=== PATIENT | female | born 1985 | race Caucasian/White ===

== ENCOUNTER 2016-07-14 14:02 | Emergency (ER) | payer SELFPAY ==
--- NOTE | 2016-07-14 14:30 | ER Document Report ---
ED Medical Screen (RME) - General Chief Complaint: Vomiting Stated Complaint: VOMITTING, DIZZY Time seen by provider: 14:28 Mode of Arrival: Ambulatory Information source: Patient Notes: 30 yo female presents to ed for vomiting dizziness and fatigue for a week - HPI Onset: Last week Onset/Duration: Gradual Quality of pain: Achy Severity: Moderate Pain Level: 4 Associated Symptoms: Dizzy/lightheaded, Headache, Vomiting, Other - fatiqued. denies: Fever Exacerbated by: Denies Relieved by: Denies Similar symptoms previously: No Recently seen / treated by doctor: No - Related Data Smoking: Cigarettes, Less than 1 pack/day Frequency of alcohol use: None Drug Abuse: None Allergies/Adverse Reactions: No Known Allergies Allergy (Unverified 07/14/16 14:27) Physical Exam - Vital signs Vitals: Temp Pulse Resp BP Pulse Ox 98.1 F 75 14 146/95 H 99 07/14/16 14:19 07/14/16 14:19 07/14/16 14:19 07/14/16 14:19 07/14/16 14:19 Course - Vital Signs Vital signs: Temp Pulse Resp BP Pulse Ox 98.1 F 75 14 146/95 H 99 07/14/16 14:19 07/14/16 14:19 07/14/16 14:19 07/14/16 14:19 07/14/16 14:19
[2016-07-14] MEDS ORDERED: ONDANSETRON 4 MG TAB.RAPDIS PO ONE (14:31)
[2016-07-14 14:59] LABS: ABSOLUTE LYMPHOCYTES (AUTO) 1.6 10^3/uL (0.5-4.7); ABSOLUTE MONOCYTES (AUTO) 0.5 10^3/uL (0.1-1.4); BASOPHILS % (AUTO) 0.4 % (0-2); EOSINOPHILS % (AUTO) 0.4 % (0-6); HEMATOCRIT 42.4 % (36.0-47.0); HEMOGLOBIN 14.7 g/dL (12.0-15.5); HGB HCT DIFFERENCE 1.7; LYMPHOCYTES % (AUTO) 19.9 % (13-45); MEAN CORPUSCULAR HGB CONC 34.5 g/dL (32.0-36.0); MEAN CORPUSCULAR VOLUME 93 fl (80-97); RED BLOOD COUNT 4.57 10^6/uL (3.72-5.28); RED CELL DISTRIBUTION WIDTH 12.8 % (11.5-14.0); SEGMENTED NEUTROPHILS % (AUTO) 73.3 % (42-78); WHITE BLOOD COUNT 8.2 10^3/uL (4.0-10.5)
[2016-07-14 15:04] LABS: APPEARANCE,URINE SLIGHTLY-CLOUDY; BILIRUBIN,URINE SMALL (NEGATIVE); GLUCOSE, URINE NEGATIVE (NEGATIVE); KETONES,URINE 20 mg/dL (NEGATIVE); LEUKOCYTE ESTERASE,URINE TRACE (NEGATIVE); NITRITE,URINE NEGATIVE (NEGATIVE); PROTEIN,URINE 30 mg/dL (NEGATIVE); URINE SPECIFIC GRAVITY 1.027
[2016-07-14 15:24] LABS: ALANINE AMINOTRANSFERASE 39 U/L (9-52); ALBUMIN 4.7 g/dL (3.5-5.0); ALKALINE PHOSPHATASE 77 U/L (38-126); ANION GAP 15 (5-19); ASPARTATE AMINO TRANSFERASE 27 U/L (14-36); BILIRUBIN,TOTAL 0.7 mg/dL (0.2-1.3); BLOOD UREA NITROGEN 9 mg/dL (7-20); CARBON DIOXIDE 23 mmol/L (22-30); CHLORIDE 104 mmol/L (98-107); CREATININE RESULT 0.52 mg/dL (0.52-1.25); GLUCOSE 82 mg/dL (75-110); LIPASE 26.6 U/L (23-300); POTASSIUM 4.1 mmol/L (3.6-5.0); SODIUM 141.6 mmol/L (137-145); TOTAL PROTEIN 7.6 g/dL (6.3-8.2)
--- NOTE | 2016-07-14 16:25 | ER Document Report ---
ED General - General Chief Complaint: Nausea/Vomiting Stated Complaint: VOMITTING, DIZZY Mode of Arrival: Ambulatory Information source: Patient Notes: 30-year-old female presents with complaints of 4 day duration nausea vomiting. Patient denies any fevers or chills. Patient denies any other abdominal pain. Patient does note a headache from all the vomiting. Patient does note that her son had similar complaints Patient last sexually active 2 months ago TRAVEL OUTSIDE OF THE [place] IN LAST 30 DAYS: No COUNTRY TRAVELED TO/FROM: [facility] Onset: Last week Onset/Duration: Persistent Quality of pain: Achy Severity: Mild Pain Level: 1 Associated symptoms: Headache, Nausea, Vomiting Exacerbated by: Denies Relieved by: Denies Similar symptoms previously: Yes Recently seen / treated by doctor: Yes - Related Data Allergies/Adverse Reactions: No Known Allergies Allergy (Unverified 07/14/16 14:27) Past Medical History - General Information source: Patient - Social History Smoking Status: Current Every Day Smoker Cigarette use (# per day): Yes Chew tobacco use (# tins/day): No Smoking Education Provided: Yes - Patient counselled regarding cessation for 4 minutes Frequency of alcohol use: None Drug Abuse: None Family History: Reviewed & Not Pertinent Patient has suicidal ideation: No Patient has homicidal ideation: No Review of Systems - Review of Systems Notes: REVIEW OF SYSTEMS: CONSTITUTIONAL : Denies fever, chills, or sweats. Denies recent illness. EENT: Denies eye, ear, throat, or mouth pain or symptoms. Denies nasal or sinus congestion or discharge. Denies throat, tongue, or mouth swelling or difficulty swallowing. CARDIOVASCULAR: Denies chest pain. Denies palpitations or racing or irregular heart beat. Denies ankle edema. RESPIRATORY: Denies cough, cold, or chest congestion. Denies shortness of breath, difficulty breathing, or wheezing. GASTROINTESTINAL: Admits nausea vomiting GENITOURINARY: Denies difficulty urinating, painful urination, burning, frequency, blood in urine, or discharge. FEMALE GENITOURINARY: Denies vaginal bleeding, heavy or abnormal periods, irregular periods. Denies vaginal discharge or odor. MUSCULOSKELETAL: Denies back or neck pain or stiffness. Denies joint pain or swelling. SKIN: Denies rash, lesions or sores. HEMATOLOGIC : Denies easy bruising or bleeding. LYMPHATIC: Denies swollen, enlarged glands. NEUROLOGICAL: Denies confusion or altered mental status. Denies passing out or loss of consciousness. Denies dizziness or lightheadedness. Denies headache. Denies weakness or paralysis or loss of use of either side. Denies problems with gait or speech. Denies sensory loss, numbness, or tingling. Denies seizures. PSYCHIATRIC: Denies anxiety or stress. Denies depression, suicidal ideation, or homicidal ideation. ALL OTHER SYSTEMS REVIEWED AND NEGATIVE. Dictation was performed using cheerapp voice recognition software PHYSICAL EXAMINATION: GENERAL: Well-appearing, well-nourished and in no acute distress. HEAD: Atraumatic, normocephalic. EYES: Pupils equal round and reactive to light, extraocular movements intact, conjunctiva are normal. ENT: Nares patent, oropharynx clear without exudates. Moist mucous membranes. NECK: Normal range of motion, supple without lymphadenopathy LUNGS: Breath sounds clear to auscultation bilaterally and equal. No wheezes rales or rhonchi. HEART: Regular rate and rhythm without murmurs ABDOMEN: Soft, nontender, nondistended abdomen. No guarding, no rebound. No masses appreciated. Female : deferred Musculoskeletal: Normal range of motion, no pitting or edema. No cyanosis. NEUROLOGICAL: Cranial nerves grossly intact. Normal speech, normal gait. Normal sensory, motor exams PSYCH: Normal mood, normal affect. SKIN: Warm, Dry, normal turgor, no rashes or lesions noted. Physical Exam - Vital signs Vitals: Temp Pulse Resp BP Pulse Ox 98.1 F 75 14 146/95 H 99 07/14/16 14:19 07/14/16 14:19 07/14/16 14:19 07/14/16 14:19 07/14/16 14:19 Course - Re-evaluation Re-evalutation: 07/14/16 16:21 Patient is noted to be , she has been instructed to stop smoking vitamins will be started. She will be given follow-up with health department Patient has no vaginal bleeding or discharge After performing a Medical Screening Examination, I estimate there is LOW risk for ACUTE APPENDICITIS, BOWEL OBSTRUCTION, ACUTE CHOLECYSTITIS, PERFORATED DIVERTICULITIS, INCARCERATED HERNIA, PANCREATITIS, PELVIC INFLAMMATORY DISEASE, PERFORATED ULCER, ECTOPIC , or TUBO-OVARIAN ABSCESS, thus I consider the discharge disposition reasonable. Also, there is no evidence or peritonitis , sepsis, or toxicity. The patient and I have discussed the diagnosis and risks , and we agree with discharging home with close follow-up with the understanding that symptoms and presentations can change. We also discussed returning to the Emergency Department immediately if new or worsening symptoms occur. We have discussed the symptoms which are most concerning (e.g., bloody stool, fever, changing or worsening pain, vomiting) that necessitate immediate return. - Vital Signs Vital signs: Temp Pulse Resp BP Pulse Ox 98.1 F 75 14 146/95 H 99 07/14/16 14:19 07/14/16 14:19 07/14/16 14:19 07/14/16 14:19 07/14/16 14:19 - Laboratory Result Diagrams: 07/14/16 14:38 07/14/16 14:38 Laboratory results interpreted by me: 07/14/16 07/14/16 14:38 14:38 Serum HCG, Qual POSITIVE H Urine Protein 30 H Urine Ketones 20 H Urine Bilirubin SMALL H Urine Urobilinogen 2.0 H Ur Leukocyte Esterase TRACE H Discharge - Discharge Clinical Impression: Encounter for smoking cessation counseling Nausea & vomiting Qualifiers: Vomiting type: unspecified Vomiting Intractability: non-intractable Qualified Code(s): R11.2 - Nausea with vomiting, unspecified Qualifiers: Weeks of gestation: unspecified Qualified Code(s): Z33.1 - state, incidental Condition: Stable Disposition: HOME, SELF-CARE Instructions: Vomiting ([facility]) Prescriptions: Pnv95/Ferrous Fumarate/FA [ Caplet] 1 each PO DAILY #30 tablet Forms: Smoking Cessation Education [facility] - Follow up tomorrow
[2016-07-14 16:54] VITALS: BP 129/85
== END 2016-07-14 16:54 | disposition home or self-care (01) ==
LOC: ER 14:02
DX: O21.9 Vomiting of pregnancy, unspecified (principal); O99.330 Smoking (tobacco) complicating pregnancy, unspecified trimester; F17.210 Nicotine dependence, cigarettes, uncomplicated; Z71.6 Tobacco abuse counseling; O26.899 Other specified pregnancy related conditions, unspecified trimester; R51 Headache; Z3A.00 Weeks of gestation of pregnancy not specified
CPT/HCPCS: 99284; 36415; 84702; 83690; 84703; 85025; 80053; 81001; S0119

== ENCOUNTER 2016-08-02 14:02 | Emergency (ER) | payer SELFPAY ==
--- NOTE | 2016-08-02 14:41 | ER Document Report ---
ED Medical Screen (RME) - General Stated Complaint: STOMACH PAIN Notes: 30 yo , 12 weeks gestation, c/o vomiting, upper abdominal pain x 2 days. no lower abdominal pain. no vaginal bleeding. TRAVEL OUTSIDE OF THE [place] IN LAST 30 DAYS: No COUNTRY TRAVELED TO/FROM: [facility] - Related Data Allergies/Adverse Reactions: No Known Allergies Allergy (Unverified 07/14/16 14:27) Past Medical History - Immunizations Hx Diphtheria, Pertussis, Tetanus Vaccination: Yes Physical Exam - Vital signs Vitals: Temp Pulse Resp BP Pulse Ox 98.1 F 78 16 136/90 H 98 08/02/16 14:34 08/02/16 14:34 08/02/16 14:34 08/02/16 14:34 08/02/16 14:34 Course - Vital Signs Vital signs: Temp Pulse Resp BP Pulse Ox 98.1 F 78 16 136/90 H 98 08/02/16 14:34 08/02/16 14:34 08/02/16 14:34 08/02/16 14:34 08/02/16 14:34
[2016-08-02 15:13] LABS: ABSOLUTE BASOPHILS # (AUTO) 0.1 10^3/uL (0.0-0.2); ABSOLUTE EOSINOPHILS # (AUTO) 0.1 10^3/uL (0.0-0.6); ABSOLUTE LYMPHOCYTES (AUTO) 1.9 10^3/uL (0.5-4.7); ABSOLUTE MONOCYTES (AUTO) 0.7 10^3/uL (0.1-1.4); BASOPHILS % (AUTO) 0.7 % (0-2); EOSINOPHILS % (AUTO) 0.5 % (0-6); HEMATOCRIT 40.4 % (36.0-47.0); HEMOGLOBIN 13.3 g/dL (12.0-15.5); HGB HCT DIFFERENCE -0.5; LYMPHOCYTES % (AUTO) 15.9 % (13-45); MEAN CORPUSCULAR HEMOGLOBIN 30.8 pg (27.0-33.4); MEAN CORPUSCULAR VOLUME 93 fl (80-97); MONOCYTES % (AUTO) 6.1 % (3-13); RED BLOOD COUNT 4.33 10^6/uL (3.72-5.28); RED CELL DISTRIBUTION WIDTH 12.4 % (11.5-14.0); SEGMENTED NEUTROPHILS % (AUTO) 76.8 % (42-78); WHITE BLOOD COUNT 11.7 10^3/uL (4.0-10.5)
[2016-08-02 15:21] LABS: APPEARANCE,URINE CLOUDY; BILIRUBIN,URINE MODERATE (NEGATIVE); CALCIUM OXALATE CRYSTALS,URINE MODERATE /HPF; GLUCOSE, URINE NEGATIVE (NEGATIVE); KETONES,URINE TRACE mg/dL (NEGATIVE); LEUKOCYTE ESTERASE,URINE MODERATE (NEGATIVE); NITRITE,URINE NEGATIVE (NEGATIVE); PROTEIN,URINE 100 mg/dL (NEGATIVE); URINE SPECIFIC GRAVITY 1.029
[2016-08-02 15:31] LABS: ALANINE AMINOTRANSFERASE 27 U/L (9-52); ALBUMIN 4.5 g/dL (3.5-5.0); ALKALINE PHOSPHATASE 87 U/L (38-126); ANION GAP 14 (5-19); ASPARTATE AMINO TRANSFERASE 19 U/L (14-36); BILIRUBIN,TOTAL 0.5 mg/dL (0.2-1.3); BLOOD UREA NITROGEN 8 mg/dL (7-20); CALCIUM 9.8 mg/dL (8.4-10.2); CARBON DIOXIDE 25 mmol/L (22-30); CHLORIDE 102 mmol/L (98-107); CREATININE RESULT 0.45 mg/dL (0.52-1.25); GLUCOSE 87 mg/dL (75-110); LIPASE 48.4 U/L (23-300); POTASSIUM 3.7 mmol/L (3.6-5.0); SODIUM 140.8 mmol/L (137-145); TOTAL PROTEIN 7.3 g/dL (6.3-8.2)
[2016-08-02 17:27] VITALS: BP 147/62
[2016-08-02] MEDS ORDERED: ONDANSETRON 4 MG TAB.RAPDIS PO ONE (17:30)
[2016-08-02] MEDS ORDERED: ONDANSETRON ODT 4 MG TAB (6 TAB/DSPK) PO PRN (17:32)
[2016-08-02] MEDS ORDERED: CEPHALEXIN 500 MG CAPSULE PO ONE (17:32)
--- NOTE | 2016-08-02 17:39 | ER Document Report ---
ED General - General Chief Complaint: Abdominal Pain Stated Complaint: STOMACH PAIN Time seen by provider: 17:20 Mode of Arrival: Ambulatory Information source: Patient Notes: 30-year-old female reports being 12 weeks by dates who has had problems with vomiting for a month. She reports Zofran works well when she was seen here she was prescribed Phenergan which she says doesn't work as well and in any case she's run out and her Medicaid has not come through yet show she's not had any PROCEDURE MANAGER follow-up. Patient reports she's vomiting daily and is able to drink some liquids but has difficulty keeping solid food down. She reports for the past today she's also had sharp epigastric pain with vomiting but not otherwise. She denies vaginal bleeding or discharge. She denies any lower abdominal pain or cramping. She denies fever, chills, cough, shortness breath, chest pain, back pain, dysuria, hematemesis, hemorrhages, melena, diarrhea, or syncope. She reports being in normal state of health otherwise recently. Physical Exam: General: Alert, appears well. HEENT: Normocephalic. Atraumatic. PERRLA. Extraocular movements intact. Oropharynx clear. Neck: Supple. Non-tender. Respiratory: No respiratory distress. Clear and equal breath sounds bilaterally. Cardiovascular: Regular rate and rhythm. Abdominal: Normal Inspection. Soft, non-tender. No distension. Normal Bowel Sounds. Back: Non-tender. No deformity or step off. Extremities: Moves all four extremities. Upper extremities: Normal inspection. Non-tender. Normal color. Normal ROM. Normal temperature. Lower extremities: Normal inspection. Non-tender. No edema. Normal color. Normal ROM. Normal temperature. Neurological: Speech clear mentation normal Psychological: Normal affect. Normal Mood. Skin: Warm. Dry. Normal color. TRAVEL OUTSIDE OF THE [place] IN LAST 30 DAYS: No COUNTRY TRAVELED TO/FROM: [facility] - Related Data Allergies/Adverse Reactions: No Known Allergies Allergy (Verified 08/02/16 14:39) Past Medical History - Social History Smoking Status: Never Smoker Chew tobacco use (# tins/day): No Frequency of alcohol use: None Drug Abuse: None Family History: Reviewed & Not Pertinent Patient has suicidal ideation: No Patient has homicidal ideation: No Renal/ Medical History: Denies: Hx Peritoneal Dialysis Past Surgical History: Reports: Hx Tonsillectomy - Immunizations Hx Diphtheria, Pertussis, Tetanus Vaccination: Yes Review of Systems - Review of Systems Constitutional: denies: Chills, Fever EENT: denies: Ear pain, Throat pain Cardiovascular: denies: Chest pain Respiratory: denies: Cough, Short of breath Gastrointestinal: See HPI Genitourinary: denies: Burning, Dysuria Female Genitourinary: Last menstrual period - Thinks giving Musculoskeletal: denies: Back pain Hematologic/Lymphatic: denies: Swollen glands Neurological/Psychological: denies: Weakness, Numbness Physical Exam - Vital signs Vitals: Temp Pulse Resp BP Pulse Ox 98.1 F 78 16 136/90 H 98 08/02/16 14:34 08/02/16 14:34 08/02/16 14:34 08/02/16 14:34 08/02/16 14:34 Course - Re-evaluation Re-evalutation: 08/02/16 17:38 With patient and vomiting is related to her and not evidence for pyelonephritis in or other intra-abdominal pathology. She is reporting sharp abdominal pain with vomiting but has no abdominal pain on exam. He is not complaining of any abdominal or symptoms suggestive of related pain. We'll provide patient with Zofran here and first dose of antibiotics to treat UTI Center home with a 6 pack to the emergency department and a prescription for more Zofran. She reports she is in the process of following up with an PROCEDURE MANAGER and will provide her with the number for PROCEDURE MANAGER here as well. Her laboratory work does not suggest a significant component of dehydration and I do not believe she requires IV fluids or IV antibiotics at this point. - Vital Signs Vital signs: Temp Pulse Resp BP Pulse Ox 98.6 F 82 20 147/62 H 100 08/02/16 17:26 08/02/16 17:26 08/02/16 17:26 08/02/16 17:26 08/02/16 17:26 - Laboratory Result Diagrams: 08/02/16 14:45 08/02/16 14:45 Laboratory results interpreted by me: 08/02/16 08/02/16 08/02/16 14:45 14:45 14:45 WBC 11.7 H Absolute Neutrophils 9.0 H Creatinine 0.45 L Urine Protein 100 H Urine Ketones TRACE H Urine Bilirubin MODERATE H Urine Urobilinogen 4.0 H Ur Leukocyte Esterase MODERATE H 08/02/16 17:37 Discharge - Discharge Clinical Impression: First trimester , Vomiting affecting UTI (urinary tract infection) Qualifiers: Urinary tract infection type: site unspecified Hematuria presence: without hematuria Qualified Code(s): N39.0 - Urinary tract infection, site not specified Condition: Stable Disposition: HOME, SELF-CARE Instructions: Urinary Tract Infection ([facility]) Additional Instructions: You are . care is best started as early in as possible. If you're unsure about continuing this , you should discuss this with your physician or with merchandise for resale purchasing agent at [facility]. You should take only medications approved by your physician. Acetaminophen can safely be taken for minor pains. As a rule, medication for chronic conditions such as asthma or seizures can safely be continued. You should discuss with the physician every medicine you take. Any regular exercise program can be continued. Talk to your physician, however, before engaging in competitive or demanding sports. Alcohol, smoking, and "street drugs" are dangerous to your baby. Cocaine is especially dangerous. Don't use any illicit drugs! Prescriptions: Cephalexin Monohydrate [Keflex 500 mg Capsule] 500 mg PO BID #14 capsule Ondansetron [Zofran Odt 4 mg Tablet] 1 tab PO Q4H PRN #20 tab.rapdis PRN Reason: For Nausea/Vomiting Referrals: AARON DAMON MD [ACTIVE STAFF] - Follow up in 3-5 days
== END 2016-08-02 17:47 | disposition home or self-care (01) ==
LOC: ER 14:02
DX: O21.9 Vomiting of pregnancy, unspecified (principal); O23.41 Unspecified infection of urinary tract in pregnancy, first trimester; O26.891 Other specified pregnancy related conditions, first trimester; R10.13 Epigastric pain; Z3A.12 12 weeks gestation of pregnancy
CPT/HCPCS: 99284; 36415; 83690; 85025; 80053; 81001; S0119

== ENCOUNTER → 2016-10-25 | Outpatient (CLI) | payer MEDICAID | LOC: RAD 15:37 | PROVIDERS: ATTEND Nurse Practitioner Women's Health | DX: Z34.82 Encounter for supervision of other normal pregnancy, second trimester (principal) | CPT/HCPCS: 76805 ==

== ENCOUNTER 2017-02-05 20:05 | Outpatient (CLI) | payer MEDICAID ==
[2017-02-05 21:28] LABS: APPEARANCE,URINE CLEAR; BILIRUBIN,URINE NEGATIVE (NEGATIVE); GLUCOSE, URINE NEGATIVE (NEGATIVE); KETONES,URINE NEGATIVE (NEGATIVE); LEUKOCYTE ESTERASE,URINE TRACE (NEGATIVE); NITRITE,URINE NEGATIVE (NEGATIVE); PROTEIN,URINE NEGATIVE (NEGATIVE); URINE SPECIFIC GRAVITY 1.004; UROBILINOGEN,URINE NEGATIVE mg/dL (<2.0)
[2017-02-05 21:33] LABS: ABSOLUTE BASOPHILS # (AUTO) 0.1 10^3/uL (0.0-0.2); ABSOLUTE EOSINOPHILS # (AUTO) 0.1 10^3/uL (0.0-0.6); ABSOLUTE LYMPHOCYTES (AUTO) 2.5 10^3/uL (0.5-4.7); ABSOLUTE MONOCYTES (AUTO) 0.8 10^3/uL (0.1-1.4); BASOPHILS % (AUTO) 0.7 % (0-2); HEMATOCRIT 35.7 % (36.0-47.0); HEMOGLOBIN 12.5 g/dL (12.0-15.5); HGB HCT DIFFERENCE 1.8; MEAN CORPUSCULAR HEMOGLOBIN 32.5 pg (27.0-33.4); MEAN CORPUSCULAR HGB CONC 35.1 g/dL (32.0-36.0); MEAN CORPUSCULAR VOLUME 93 fl (80-97); MONOCYTES % (AUTO) 7.4 % (3-13); RED BLOOD COUNT 3.86 10^6/uL (3.72-5.28); RED CELL DISTRIBUTION WIDTH 13.2 % (11.5-14.0); SEGMENTED NEUTROPHILS % (AUTO) 66.9 % (42-78); WHITE BLOOD COUNT 10.5 10^3/uL (4.0-10.5)
[2017-02-05 21:43] LABS: URINE BARBITURATES SCREEN NEGATIVE; URINE METHADONE SCREEN NEGATIVE; URINE OPIATES LOW NEGATIVE; URINE PHENCYCLIDINE SCREEN NEGATIVE
[2017-02-05 21:53] LABS: ALANINE AMINOTRANSFERASE 29 U/L (9-52); ALBUMIN 3.2 g/dL (3.5-5.0); ALKALINE PHOSPHATASE 125 U/L (38-126); ANION GAP 9 (5-19); ASPARTATE AMINO TRANSFERASE 18 U/L (14-36); BILIRUBIN,DIRECT 0.3 mg/dL (0.0-0.4); BILIRUBIN,TOTAL 0.4 mg/dL (0.2-1.3); BLOOD UREA NITROGEN 5 mg/dL (7-20); CALCIUM 8.8 mg/dL (8.4-10.2); CARBON DIOXIDE 23 mmol/L (22-30); CHLORIDE 106 mmol/L (98-107); CREATININE RESULT 0.47 mg/dL (0.52-1.25); GLUCOSE 73 mg/dL (75-110); LDH 336 U/L (313-618); POTASSIUM 4.4 mmol/L (3.6-5.0); SODIUM 138.2 mmol/L (137-145); URIC ACID 4.1 mg/dL (2.5-6.2)
== END 2017-02-05 22:12 | disposition home or self-care (01) ==
LOC: LC 20:05
PROVIDERS: ATTEND Student in an Organized Health Care Education/Training Program
PROC: 4A1HXCZ Monitoring of Products of Conception, Cardiac Rate, External Approach (ICD-10-PCS; principal; 2017-02-05)
DX: O47.03 False labor before 37 completed weeks of gestation, third trimester (principal); Z3A.36 36 weeks gestation of pregnancy
CPT/HCPCS: 36415; 59025; 80053; 80307; 81001; 83615; 84550; 85025

== ENCOUNTER 2017-02-14 10:35 | Outpatient (CLI) | payer MEDICAID ==
--- NOTE | 2017-02-14 10:42 | Non Stress Test Report ---
Non Stress Test Datetime Report Generated by CPN: 02/14/2017 10:42 DEMOGRAPHIC Test Number: 1 EGA NST: 36.0 INDICATION Indication for Study: Ordered by Provider MONITORING Monitor Explained: Monitor Explained; Test Explained; Patient Verbalized Understanding Time on Monitor: 02/05/2017 20:30 Time off Monitor: 02/05/2017 22:02 NST Duration: 92 NST INTERVENTIONS NST Interventions: PO Hydration; Reposition Patient Physician Notified NST: Dr. Nielsen BABY A: [id number] BABY A Movement : Present Contraction Frequency : rare FHR Baseline : 145 Accelerations : 15X15 Decelerations : None Variability : Moderate 6-25bpm NST Review: Meets Criteria for Reactive NST NST Review and Verified By : Bianca Rogers RN NST Results: Reactive NST REPORT Report Trigger: Send Report
[2017-02-14 12:07] LABS: ABSOLUTE EOSINOPHILS # (AUTO) 0.1 10^3/uL (0.0-0.6); ABSOLUTE LYMPHOCYTES (AUTO) 2.8 10^3/uL (0.5-4.7); ABSOLUTE MONOCYTES (AUTO) 0.7 10^3/uL (0.1-1.4); ABSOLUTE NEUT (AUTO) 6.5 10^3/uL (1.7-8.2); BASOPHILS % (AUTO) 0.4 % (0-2); HEMATOCRIT 35.8 % (36.0-47.0); HEMOGLOBIN 12.3 g/dL (12.0-15.5); HGB HCT DIFFERENCE 1.1; LYMPHOCYTES % (AUTO) 27.5 % (13-45); MEAN CORPUSCULAR HEMOGLOBIN 31.6 pg (27.0-33.4); MEAN CORPUSCULAR HGB CONC 34.4 g/dL (32.0-36.0); MEAN CORPUSCULAR VOLUME 92 fl (80-97); MONOCYTES % (AUTO) 6.9 % (3-13); RED CELL DISTRIBUTION WIDTH 12.8 % (11.5-14.0); SEGMENTED NEUTROPHILS % (AUTO) 64.2 % (42-78); WHITE BLOOD COUNT 10.1 10^3/uL (4.0-10.5)
[2017-02-14 12:11] LABS: APPEARANCE,URINE SLIGHTLY-CLOUDY; BILIRUBIN,URINE NEGATIVE (NEGATIVE); GLUCOSE, URINE NEGATIVE (NEGATIVE); KETONES,URINE NEGATIVE (NEGATIVE); LEUKOCYTE ESTERASE,URINE LARGE (NEGATIVE); NITRITE,URINE NEGATIVE (NEGATIVE); PROTEIN,URINE NEGATIVE (NEGATIVE); URINE SPECIFIC GRAVITY 1.009
[2017-02-14 12:15] LABS: URINE CREATININE 69.8 mg/dL (16-327); URINE PROTEIN 14.3 mg/dL (<12)
[2017-02-14 12:16] LABS: ALANINE AMINOTRANSFERASE 24 U/L (9-52); ALBUMIN 2.9 g/dL (3.5-5.0); ALKALINE PHOSPHATASE 136 U/L (38-126); ANION GAP 6 (5-19); ASPARTATE AMINO TRANSFERASE 19 U/L (14-36); BILIRUBIN,DIRECT 0.4 mg/dL (0.0-0.4); BILIRUBIN,TOTAL 0.5 mg/dL (0.2-1.3); BLOOD UREA NITROGEN 5 mg/dL (7-20); CALCIUM 8.7 mg/dL (8.4-10.2); CARBON DIOXIDE 24 mmol/L (22-30); CHLORIDE 107 mmol/L (98-107); CREATININE RESULT 0.45 mg/dL (0.52-1.25); GLUCOSE 99 mg/dL (75-110); LDH 296 U/L (313-618); SODIUM 137.4 mmol/L (137-145); TOTAL PROTEIN 5.9 g/dL (6.3-8.2); URIC ACID 4.3 mg/dL (2.5-6.2)
[2017-02-14 12:21] LABS: URINE BARBITURATES SCREEN NEGATIVE; URINE METHADONE SCREEN NEGATIVE; URINE OPIATES LOW NEGATIVE; URINE PHENCYCLIDINE SCREEN NEGATIVE
== END 2017-02-14 13:08 | disposition home or self-care (01) ==
LOC: LC 10:35
PROVIDERS: ATTEND Obstetrics & Gynecology
PROC: 4A1HXCZ Monitoring of Products of Conception, Cardiac Rate, External Approach (ICD-10-PCS; principal; 2017-02-14)
DX: O13.3 Gestational [pregnancy-induced] hypertension without significant proteinuria, third trimester (principal); Z3A.37 37 weeks gestation of pregnancy
CPT/HCPCS: 36415; 59025; 80053; 80307; 81001; 82570; 83615; 84156; 84550; 85025

== ENCOUNTER 2017-02-20 15:46 | Outpatient (CLI) | payer MEDICAID ==
--- NOTE | 2017-02-20 18:38 | RADIOLOGY REPORT (SQ) ---
EXAM DESCRIPTION: U/S PROFILE W/O STRESS COMPLETED DATE/TIME: 02/20/2017 6:18 pm REASON FOR STUDY: nonreassuring nonstress test COMPARISON: None. TECHNIQUE: Limited farnsworth-scale realtime and static images of the fetus to measure specified parameter s. LIMITATIONS: None. FINDINGS: HEART RATE: 127 beats per minute. MONICA: 12.4 cm. POSTURE AND TONE: 2 points. MOVEMENT: 2 points. BREATHING MOVEMENT: 2 points. QUALITATIVE MONICA: 2 points. OTHER: No other significant finding. IMPRESSION: BIOPHYSICAL PROFILE: 02/13. Trimester of : Third - 28 weeks to delivery COMMENT: BREATHING MOVEMENTS: 2 POINTS: PRESENT 0 POINTS: ABSENT MOTION: 2 POINTS: PRESENT 0 POINTS: ABSENT TONE: 2 POINTS: PRESENT 0 POINTS: ABSENT AMNIOTIC FLUID VOLUME: 2 POINTS: LARGEST POCKET GREATER THAN 2 CM DEPTH. 0 POINTS: NO POCKET OF 2 CM. TECHNICAL DOCUMENTATION: JOB ID: [id number] [employer]- All Rights Reserved
--- NOTE | 2017-02-20 19:02 | Non Stress Test Report ---
Non Stress Test Datetime Report Generated by CPN: 02/20/2017 19:02 DEMOGRAPHIC EGA NST: 38.1 EGA NST: 37.2 INDICATION Indication for Study: Ordered by Provider Indication for Study: Gestational Hypertension; Ordered by Provider VITAL SIGNS Temperature - NST: 98.1 RESP - NST: 14 MONITORING Monitor Explained: Monitor Explained; Test Explained; Patient Verbalized Understanding Monitor Explained: Monitor Explained; Test Explained; Patient Verbalized Understanding Time on Monitor: 02/20/2017 18:08 Time on Monitor: 02/14/2017 11:01 Time off Monitor: 02/20/2017 18:45 Time off Monitor: 02/14/2017 12:00 NST Duration: 37 NST Duration: 59 NST INTERVENTIONS NST Interventions: IV Fluids; For Biophysical Profile NST Interventions: PO Hydration Physician Notified NST: Dr Sanchez BABY A: [id number] BABY A Movement : Present Movement : Present Contraction Frequency : irregular Contraction Frequency : irregular FHR Baseline : 125 FHR Baseline : 130 Accelerations : 15X15 Accelerations : 15X15 Decelerations : None Variability : Moderate 6-25bpm Variability : Moderate 6-25bpm NST Review: Meets Criteria for Reactive NST NST Review: Meets Criteria for Reactive NST NST Review and Verified By : HUAN NUNEZ RN NST Review and Verified By : Paddy VACA NST Results: Reactive NST Results: Reactive NST REPORT Report Trigger: Send Report
== END 2017-02-20 18:55 | disposition home or self-care (01) ==
LOC: LC 15:46
PROVIDERS: ATTEND Obstetrics & Gynecology
PROC: 4A1HXCZ Monitoring of Products of Conception, Cardiac Rate, External Approach (ICD-10-PCS; principal; 2017-02-20)
DX: O13.3 Gestational [pregnancy-induced] hypertension without significant proteinuria, third trimester (principal); Z3A.38 38 weeks gestation of pregnancy
CPT/HCPCS: 76819

== ENCOUNTER 2019-05-13 15:37 | Emergency (ER) | payer SELFPAY ==
--- NOTE | 2019-05-13 15:47 | ER Document Report ---
ED Medical Screen (RME) - General Chief Complaint: Skin Problem Stated Complaint: BODY FEELS LIKE IT "BURNING" Time Seen by Provider: 05/13/19 15:43 Primary Care Provider: AARON DAMON MD [Primary Care Provider] - Follow up as needed Mode of Arrival: Ambulatory Information source: Patient Notes: 33-year-old female presents to ED for complaint of feeling like her skin is burning all over. She states she laid down for nap with her 40 on and when she woke up she felt hot felt like she might be sweating and her skin felt like it was on fire. She states that she got bit by something 2 days ago but it is not red or inflamed. States she also took Mucinex she has been congested with a cold and so she took Mucinex for the first time. She states she does not have a rash anywhere that she knows of. She states she smokes half pack a day she denies any alcohol or illicit drugs. Is have a history of anxiety and depression and OCD. I have greeted and performed a rapid initial assessment of this patient. A comprehensive ED assessment and evaluation of the patient, analysis of test results and completion of medical decision making process will be conducted by an additional ED providers. TRAVEL OUTSIDE OF THE [place] IN LAST 30 DAYS: No - Related Data Allergies/Adverse Reactions: No Known Allergies Allergy (Verified 02/22/17 04:02) Past Medical History - Past Medical History Cardiac Medical History: Reports: Hx Hypertension Renal/ Medical History: Denies: Hx Peritoneal Dialysis Past Surgical History: Reports: Hx Tonsillectomy - Immunizations Hx Diphtheria, Pertussis, Tetanus Vaccination: Yes Physical Exam - Vital signs Vitals: Temp Pulse Resp BP Pulse Ox 98 F 94 20 162/82 H 99 05/13/19 15:41 05/13/19 15:41 05/13/19 15:41 05/13/19 15:41 05/13/19 15:41 Course - Vital Signs Vital signs: Temp Pulse Resp BP Pulse Ox 98 F 94 20 162/82 H 99 05/13/19 15:41 05/13/19 15:41 05/13/19 15:41 05/13/19 15:41 05/13/19 15:41 Doctor's Discharge - Discharge Referrals: AARON DAMON MD [Primary Care Provider] - Follow up as needed
[2019-05-13 16:08] LABS: ABSOLUTE BASOPHILS # (AUTO) 0.1 10^3/uL (0.0-0.2); ABSOLUTE EOSINOPHILS # (AUTO) 0.1 10^3/uL (0.0-0.6); ABSOLUTE LYMPHOCYTES (AUTO) 1.9 10^3/uL (0.5-4.7); ABSOLUTE MONOCYTES (AUTO) 0.6 10^3/uL (0.1-1.4); ABSOLUTE NEUT (AUTO) 2.9 10^3/uL (1.7-8.2); APPEARANCE,URINE SLIGHTLY-CLOUDY; BILIRUBIN,URINE MODERATE (NEGATIVE); COLOR,URINE AMBER; EOSINOPHILS % (AUTO) 1.8 % (0-6); GLUCOSE, URINE NEGATIVE (NEGATIVE); HEMATOCRIT 39.9 % (36.0-47.0); HEMOGLOBIN 13.9 g/dL (12.0-15.5); KETONES,URINE TRACE mg/dL (NEGATIVE); LYMPHOCYTES % (AUTO) 34.7 % (13-45); MEAN CORPUSCULAR HEMOGLOBIN 32.5 pg (27.0-33.4); MEAN CORPUSCULAR HGB CONC 34.9 g/dL (32.0-36.0); MEAN CORPUSCULAR VOLUME 93 fl (80-97); PLATELET COUNT 225 10^3/uL (150-450); PROTEIN,URINE NEGATIVE (NEGATIVE); RED BLOOD COUNT 4.28 10^6/uL (3.72-5.28); RED CELL DISTRIBUTION WIDTH 12.6 % (11.5-14.0); SEGMENTED NEUTROPHILS % (AUTO) 52.5 % (42-78); TOTAL CELLS COUNTED % (AUTO) 100 %; URINE SPECIFIC GRAVITY 1.028; WHITE BLOOD COUNT 5.6 10^3/uL (4.0-10.5)
[2019-05-13 16:25] LABS: URINE AMPHETAMINES SCREEN NEGATIVE; URINE BARBITURATES SCREEN NEGATIVE; URINE BENZODIAZEPINES SCREEN NEGATIVE; URINE COCAINE SCREEN NEGATIVE; URINE MARIJUANA (THC) SCREEN UNCONFIRMED POSITIVE; URINE METHADONE SCREEN NEGATIVE; URINE PHENCYCLIDINE SCREEN NEGATIVE
[2019-05-13 16:28] LABS: ALBUMIN 4.1 g/dL (3.5-5.0); ALKALINE PHOSPHATASE 66 U/L (38-126); ANION GAP 9 (5-19); ASPARTATE AMINO TRANSFERASE 25 U/L (14-36); BILIRUBIN,DIRECT 0.2 mg/dL (0.0-0.4); BILIRUBIN,TOTAL 0.6 mg/dL (0.2-1.3); BLOOD UREA NITROGEN 9 mg/dL (7-20); CALCIUM 9.1 mg/dL (8.4-10.2); CARBON DIOXIDE 24 mmol/L (22-30); CHLORIDE 112 mmol/L (98-107); GLUCOSE 90 mg/dL (75-110); POTASSIUM 3.8 mmol/L (3.6-5.0); TOTAL PROTEIN 7.1 g/dL (6.3-8.2)
[2019-05-13] MEDS ORDERED: DIAZEPAM INJ 10 MG/2 ML DISP.SYRIN IM ONE ×2 (16:52→17:01)
--- NOTE | 2019-05-13 17:08 | ER Document Report ---
ED General - General Chief Complaint: Skin Problem Stated Complaint: BODY FEELS LIKE IT "BURNING" Time Seen by Provider: 05/13/19 15:43 Primary Care Provider: AARON DAMON MD [ACTIVE STAFF] - Follow up as needed Mode of Arrival: Ambulatory Notes: 33-year-old female with history of depression and anxiety presents the emergency department with chief complaint of feeling like her skin is burning all over. She states that she laid down for nap today because she worked overnight and all of a sudden broke out into a sweat and her skin started burning about 2 hours prior to arrival. No rash, no nausea or vomiting, no respiratory distress, no other symptoms other than the burning. Patient states that she did have a bug bite of some type a couple of days ago but just had a very small local reaction. Only change with the patient is she took Mucinex about 6:00 this morning but there is been no medication changes at all. Patient is not on any antidepressants or antipsychotics. Patient states she is a cigarette smoker and smoked marijuana about 2 weeks ago. TRAVEL OUTSIDE OF THE [place] IN LAST 30 DAYS: No - Related Data Allergies/Adverse Reactions: No Known Allergies Allergy (Verified 02/22/17 04:02) Past Medical History - General Information source: Patient - Social History Smoking Status: Unknown if Ever Smoked Family History: Reviewed & Not Pertinent Patient has suicidal ideation: No Patient has homicidal ideation: No - Past Medical History Cardiac Medical History: Reports: Hx Hypertension Renal/ Medical History: Denies: Hx Peritoneal Dialysis Past Surgical History: Reports: Hx Tonsillectomy - Immunizations Hx Diphtheria, Pertussis, Tetanus Vaccination: Yes Review of Systems - Review of Systems Constitutional: See HPI EENT: No symptoms reported Cardiovascular: No symptoms reported Respiratory: See HPI Gastrointestinal: See HPI Genitourinary: No symptoms reported Female Genitourinary: No symptoms reported Musculoskeletal: No symptoms reported Skin: See HPI Hematologic/Lymphatic: No symptoms reported Neurological/Psychological: See HPI Physical Exam - Vital signs Vitals: Temp Pulse Resp BP Pulse Ox 98 F 94 20 162/82 H 99 05/13/19 15:41 05/13/19 15:41 05/13/19 15:41 05/13/19 15:41 05/13/19 15:41 - Notes Notes: PHYSICAL EXAMINATION: Reviewed vital signs and charting by RN GENERAL: Alert, interacts well. No acute distress. HEAD: Normocephalic, atraumatic. EYES: Pupils equal and round. Extraocular movements intact. ENT: Oral mucosa moist, tongue midline. NECK: Full range of motion. Trachea midline. LUNGS: Clear to auscultation bilaterally, no wheezes, rales, or rhonchi. No respiratory distress. HEART: Regular rate and rhythm. No murmur ABDOMEN: soft, non-tender. No distention. Bowel sounds present EXTREMITIES: Moves all 4 extremities spontaneously. No edema, No cyanosis. PSYCH: Patient is mildly agitated and raising her hands secondary to her symptoms, thought process linear logical SKIN: Warm, dry, normal turgor. No urticaria, patient does have sporadic healed mosquito bites on her bilateral arms, back is clear with no lesions, no evidence of exanthem. Course - Re-evaluation Re-evalutation: 05/13/19 17:[address] attending physician Dr[address] Wallace. Unclear why patient's symptoms are present as there is no offending factors. Patient denies drug use and urine drug screen was only positive for marijuana which she admitted to. Lab work all unremarkable. Plan is to give her diazepam 5 mg IM once reassess. 05/13/19 18:04 Patient felt relief after the diazepam. She said that her arms feel better but she states that she is "radiating heat from my neck". She is much more calm and I discussed giving her a prescription for Vistaril to help with cutaneous symptoms and as a potential anxiolytic. She agrees with the plan and at this time is stable for discharge. She had a completely normal physical exam and all of her lab work was unremarkable. - Vital Signs Vital signs: Temp Pulse Resp BP Pulse Ox 98 F 94 20 162/82 H 99 05/13/19 15:41 05/13/19 15:41 05/13/19 15:41 05/13/19 15:41 05/13/19 15:41 - Laboratory Result Diagrams: 05/13/19 15:54 05/13/19 15:54 Laboratory results interpreted by me: 05/13/19 05/13/19 15:54 15:54 Chloride 112 H Urine Ketones TRACE H Urine Bilirubin MODERATE H Urine Urobilinogen 2.0 H Discharge - Discharge Clinical Impression: Unspecified disturbances of skin sensation Condition: Good Disposition: HOME, SELF-CARE Additional Instructions: You were seen for an abnormal skin reaction. You had no rash in all of your lab work was normal. It is unclear why you had this reaction but everything was overall very reassuring. I am giving you a prescription for something called Vistaril that you can take. It is similar to Benadryl and is helpful for itching and may be helpful for anxiety. It can cause drowsiness like Benadryl. Please return to the emergency department if you have any other worsening skin symptoms, you develop a severe rash, you have intractable nausea or vomiting, you have difficulty breathing, or you have any other concerning symptoms. Forms: Return to Work Referrals: AARON DAMON MD [ACTIVE STAFF] - Follow up as needed
[2019-05-13 18:31] VITALS: BP 154/81
== END 2019-05-13 18:31 | disposition home or self-care (01) ==
LOC: ER 15:37
DX: R20.8 Other disturbances of skin sensation (principal); F32.9 Major depressive disorder, single episode, unspecified; F41.9 Anxiety disorder, unspecified; F17.210 Nicotine dependence, cigarettes, uncomplicated; F12.90 Cannabis use, unspecified, uncomplicated; I10 Essential (primary) hypertension
CPT/HCPCS: 99283; 96372; 36415; 84703; 85025; 80053; 81001; 80307; J3360

== ENCOUNTER 2019-05-14 02:38 | Emergency (ER) | payer SELFPAY ==
[2019-05-14] MEDS ORDERED: HYDROXYZINE PAMOATE 25 MG CAPSULE (4 CAP/ER DISP) PO PRN (04:35)
--- NOTE | 2019-05-14 04:35 | ER Document Report ---
HPI - HPI Time Seen by Provider: 05/14/19 04:12 Pain Level: 2 Context: Patient is a 33-year-old female that comes emergency department with chief complaint of burning sensation to her skin. She states that when she woke up earlier she felt like someone had "put a match to her" and she felt like she was "on fire everywhere". Other than the burning sensation she denies pain, she denies itching, she denies other symptoms including headache, chest pain, shortness of breath, difficulty swallowing or breathing, focal numbness or weakness, abdominal pain. She denies any daily medications. She smokes cigarettes, she states she smokes occasional marijuana, she denies alcohol or recreational drugs. She was seen here earlier in the day for the same symptoms and giving diazepam. She was also prescribed Vistaril but did not get the chance to fill it. - REPRODUCTIVE LMP: birht control ring Reproductive: DENIES: : Past Medical History - Social History Smoking Status: Never Smoker Frequency of alcohol use: None Drug Abuse: Marijuana Family History: Reviewed & Not Pertinent Patient has suicidal ideation: No Patient has homicidal ideation: No - Past Medical History Cardiac Medical History: Reports: Hx Hypertension Renal/ Medical History: Denies: Hx Peritoneal Dialysis Past Surgical History: Reports: Hx Tonsillectomy - Immunizations Hx Diphtheria, Pertussis, Tetanus Vaccination: Yes Vertical Provider Document - CONSTITUTIONAL General Appearance: WD/WN, No Apparent Distress - INFECTION CONTROL TRAVEL OUTSIDE OF THE [place] IN LAST 30 DAYS: No - HEENT HEENT: Atraumatic, Normocephalic - NECK Neck: Normal Inspection - RESPIRATORY Respiratory: Breath Sounds Normal, No Respiratory Distress - CARDIOVASCULAR Cardiovascular: Regular Rate, Regular Rhythm - GI/ABDOMEN Gastrointestinal: Abdomen Soft, Abdomen Non-Tender - BACK Back: Normal Inspection - MUSCULOSKELETAL/EXTREMETIES Musculoskeletal/Extremeties: MAEW, FROM, Non-Tender - NEURO Level of Consciousness: Awake, Alert, Appropriate - Patient talks rapidly and is somewhat shaky in appearance especially when she extends her hands, however otherwise unremarkable Motor/Sensory: No Motor Deficit, No Sensory Deficit - DERM Integumentary: Warm, Dry, No Rash Course - Re-evaluation Re-evalutation: Has the appearance of mild anxiety, however patient speaks very reasonably in regards to her symptoms. I discussed her recent work-up, different possibilities. She has no rash, she only has a burning sensation to her skin without itching or pain, she has no signs of allergic reaction, she is not , her vital signs are unremarkable. Differential includes anxiety, hyperthyroidism, but I do not have a suspicion of emergent etiology. She denies SI or HI. I discussed all different options with patient. After discussion decision was made to provide patient with Vistaril Dosepak to go home with to use tonight, primary care referral for additional testing, and I did discuss return precautions. Patient states appreciation and agreement. Stable at time of discharge. - Vital Signs Vital signs: Temp Pulse Resp BP Pulse Ox 97.9 F 05/14/19 04:22 Discharge - Discharge Clinical Impression: Unspecified disturbances of skin sensation Condition: Stable Disposition: HOME, SELF-CARE Additional Instructions: The exact cause of your symptoms is uncertain at this time, however I do recommend that you take the prescribed Vistaril because this definitely could help your symptoms. In addition to this I recommend primary care follow-up for additional testing including thyroid panel, anxiety treatment, or even autoimmune causes. Your test is negative. Your remaining work-up and evaluation are reassuring. Back if you worsen including developing rash, difficulty breathing or swallowing, or any other concerning or worsening symptoms Referrals: [facility] [Provider Group] - Follow up as needed [facility] [Provider Group] - Follow up in 1 week
[2019-05-14 04:58] VITALS: BP 154/83
== END 2019-05-14 04:52 | disposition home or self-care (01) ==
LOC: ER 02:38
DX: L98.9 Disorder of the skin and subcutaneous tissue, unspecified (principal); I10 Essential (primary) hypertension
CPT/HCPCS: 99283; J3490

== ENCOUNTER 2019-12-27 16:01 | Emergency (ER) | payer SELFPAY ==
[2019-12-27 16:14] VITALS: BP 150/107
--- NOTE | 2019-12-27 17:15 | ER Document Report ---
HPI - HPI Time Seen by Provider: 12/27/19 17:03 Pain Level: 2 Context: Patient is a 34-year-old female who presents emergency department with a chief complaint of rash. Patient reports a rash to the top of the left lower arm. Patient reports this is been present for 2 months. Patient reports that over the past week it appears to be drying out. States there is no drainage. States that occasionally it will itch. Denies fever. Denies redness. States that about 1 week ago she did use a [id number] anti-itch cream which made it burn. - REPRODUCTIVE Reproductive: DENIES: : Past Medical History - General Information source: Patient - Social History Smoking Status: Current Every Day Smoker Chew tobacco use (# tins/day): No Frequency of alcohol use: None Drug Abuse: Marijuana Family History: Reviewed & Not Pertinent - Past Medical History Cardiac Medical History: Reports: Hx Hypertension Pulmonary Medical History: Reports: None EENT Medical History: Reports: None Neurological Medical History: Reports: None Endocrine Medical History: Reports: None Renal/ Medical History: Reports: None. Denies: Hx Peritoneal Dialysis Malignancy Medical History: Reports: None GI Medical History: Reports: None Musculoskeletal Medical History: Reports None Skin Medical History: Reports None Psychiatric Medical History: Reports: None Traumatic Medical History: Reports: None Infectious Medical History: Reports: None Past Surgical History: Reports: Hx Tonsillectomy - Immunizations Hx Diphtheria, Pertussis, Tetanus Vaccination: Yes Vertical Provider Document - CONSTITUTIONAL Agree With Documented VS: Yes Exam Limitations: No Limitations General Appearance: No Apparent Distress - INFECTION CONTROL TRAVEL OUTSIDE OF THE [place] IN LAST 30 DAYS: No - HEENT HEENT: Atraumatic, Normal ENT Exam, Normocephalic, PERRLA - NECK Neck: Normal Inspection - RESPIRATORY Respiratory: Breath Sounds Normal, No Respiratory Distress - CARDIOVASCULAR Cardiovascular: Regular Rate, Regular Rhythm - GI/ABDOMEN Gastrointestinal: Abdomen Soft, Abdomen Non-Tender - BACK Back: Normal Inspection - MUSCULOSKELETAL/EXTREMETIES Musculoskeletal/Extremeties: FROM - NEURO Level of Consciousness: Awake, Alert, Appropriate - DERM Integumentary: Rash - Pruritic, circular, erythematous, scaling patch/plaque like to left dorsal aspect of the left lower arm Course - Vital Signs Vital signs: Temp Pulse Resp BP Pulse Ox 98.7 F 81 16 150/107 H 97 12/27/19 16:12 12/27/19 16:12 12/27/19 16:12 12/27/19 16:12 12/27/19 16:12 Discharge - Discharge Clinical Impression: Ringworm of body Condition: Stable Disposition: HOME, SELF-CARE Additional Instructions: *Today are seen emergency department for a rash. Her symptoms appear to be consistent with ringworm. This is a fungal infection. Please try Lotrimin [id number] as this may be a better santana for you. I am also prescribing an antifungal cream which is a stronger prescription for Lotrimin. Please return if symptoms worsen or change. Prescriptions: Butenafine HCl [Mentax Cream] 1 applic TP DAILY PRN 14 Days #1 tub PRN Reason:
== END 2019-12-27 17:22 | disposition home or self-care (01) ==
LOC: ER 16:01
DX: B35.4 Tinea corporis (principal); F17.200 Nicotine dependence, unspecified, uncomplicated; I10 Essential (primary) hypertension
CPT/HCPCS: 99283